=== PATIENT | male | born 1980 | race Caucasian/White ===

== ENCOUNTER 2019-12-23 04:40 | Inpatient (IN) | payer MEDICAID ==
[~2019-12-23] VITALS: Ht 167.6 cm; Wt 95.3 kg
[2019-12-23 04:48] VITALS: BP 108/74
[2019-12-23] MEDS ORDERED: NACL 0.9% 1,000 ML IV ONE (05:22)
[2019-12-23] MEDS ORDERED: LIDOCAINE/EPI 1% 1:100000 20 ML VIAL INJ ONE (05:25)
[2019-12-23] MEDS ORDERED: KETOROLAC 30 MG/ML VIAL IVP ONE (05:25)
--- NOTE | 2019-12-23 05:50 | NUR ---
39 YEAR OLD MALE COMPLAINS OF REDNESS, PAIN, AND SWELLING X 4 DAYS. PER PATIENT HE DENIES ANY TRAUMA. VISIBLE SWELLING, REDNESS AND SHARP PAIN AND HOT ON TOUCH TO RIGHT KNEE AREA. PATIENT AOX4, BREATHING EVEN AND UNLABORED, LUNGS CLEAR BL, SKIN WARM AND DRY. BED IN LOWEST POSITION, LOCKED, BED RAIL UPX1. PMH - DENIES ALLERGIES - NKA
--- NOTE | 2019-12-23 05:55 | NUR ---
DR BELTRAN AT BEDSIDE PERFORMING PROCEDURE
[2019-12-23 06:14] LABS: HEMATOCRIT 43.7 % (36-52); MEAN CORPUSCULAR HEMOGLOBIN 30 pg (27-31); MEAN CORPUSCULAR HGB CONC 34 g/dL (33-37); MEAN CORPUSCULAR VOLUME 87.7 fL (80-94); PLATELET COUNT (AUTO) 191 K/uL (140-450); RED BLOOD CELL COUNT(AUTO) 4.99 MIL/uL (4.20-6.10); RED CELL DISTRIBUTION WIDTH 13.1 % (11.6-13.7)
[2019-12-23] MEDS ORDERED: ONDANSETRON 4 MG/2 ML VIAL IVP ONE (06:20)
[2019-12-23] MEDS ORDERED: MORPHINE SULFATE 4 MG/ML SYR IVP ONE (06:20)
[2019-12-23] MEDS ORDERED: VANCOMYCIN 1,000 MG in DEXTROSE 5% 250 ML IV ONE (06:20)
[2019-12-23 06:23] LABS: WHITE BLOOD COUNT (AUTO) 36.3 K/uL (4.8-10.8)
[2019-12-23] MEDS ORDERED: NACL 0.9% 2,000 ML IV ONE (06:25)
--- NOTE | 2019-12-23 06:26 | NUR ---
RECIEVED A CRITICAL LAB VALUE FROM [facility] IN LAB FOR WBC COUNT OF 36.3. ALBERT MADE AWARE.
[2019-12-23] MEDS ORDERED: cefTRIAXone 1,000 MG VIAL ONE (06:28)
[2019-12-23 06:34] LABS: PROTHROMBIN TIME 12.8 secs (10.8-13.4)
[2019-12-23] MEDS ORDERED: DOCUSATE SODIUM 100 MG GELCAP PO PRN (06:35)
[2019-12-23] MEDS ORDERED: HYDROcodone/APAP 5/325 MG 1 TAB TAB PO PRN (06:35)
[2019-12-23] MEDS ORDERED: ONDANSETRON 4 MG/2 ML VIAL IM/IVP PRN (06:35)
[2019-12-23] MEDS ORDERED: MORPHINE SULFATE 2 MG/ML SYR IVP PRN (06:35)
[2019-12-23] MEDS ORDERED: LORazepam 2 MG/ML VIAL IM/IVP PRN (06:35)
[2019-12-23 06:49] LABS: ANION GAP 19.7 (8-16); CARBON DIOXIDE 19.5 mmol/L (21-32); CREATININE 2.2 mg/dL (0.6-1.3); POTASSIUM 3.2 mmol/L (3.5-5.1)
[2019-12-23 06:54] LABS: ALBUMIN 2.9 g/dL (3.4-5.0); TOTAL BILIRUBIN 0.8 mg/dL (0.0-1.0)
[2019-12-23 07:03] LABS: BASOPHILS % (MANUAL) 0 % (0-2); EOSINOPHILS % (MANUAL) 0 % (0-4); LYMPHOCYTES % (MANUAL) 6 % (20-46); MONOCYTES % (MANUAL) 7 % (5-12)
[2019-12-23 07:35] VITALS: BP 104/62
--- NOTE | 2019-12-23 07:35 | NUR ---
Patient will be admitted to care of DR Tay. Admited to [facility]. Will go to room 105A. Belongings list completed. Report to Cathryn AVILES.
--- NOTE | 2019-12-23 07:35 | NUR ---
PT ARRIVED UNIT VIA GURNEY ACCOMPANIED WITH ER NURSE BREEZY. PT IS AAOX4, SPEAKS IRISH, AND ABLE TO FOLLOW SIMPLE COMMAND AND UNDERSTAND MINIMAL MALAWIAN. RESPIRATION EVEN AND UNLABORED ON RA. DENIED PAIN, SOB AND DIZZINESS AT THIS TIME. NO SIGNS OF DISTRESS NOTED. IV ON LAC 20G, CLEAN AND INTACT, INFUSING BOLUS NS FROM ER. REDNESS ON R LEG NOTED, OTHERWISE SKIN CLEAN AND DRY. PT IS CONTINENT AND BEDREST AT THIS TIME DUE TO DISCOMFORT OF R LEG. ORIENTED PT TO THE ROOM, INSTRUCTED PT ON HOW TO USE THE CALL LIGHT, TV, BED REMOTE, LIGHTS, AND BATHROOM, PT SAID OK. UPDATED BOARD. MRSA NARES COLLECTED AND VITAL SIGNS TAKEN; TEMP 98.1 TEMPORAL, BP 104/62, PULSE 95, SPO2 97% ON RA, RR 19, DENIED PAIN AT THIS TIME. DISCUSSED PLAN OF CARE WITH PT AND PT WAS AWARE. SAFETY MEASURE IN PLACE. BED IN LOW POSITION AND CALL LIGHT WITHIN REACH. INSTRUCTED PT TO USE THE CALL LIGHT FOR ANY ASSISTANCE AND PT AWARE.
--- NOTE | 2019-12-23 08:02 | NUR ---
PROVIDED WARM BLANKET AND URANAL. PT IS TALKING ON HIS CELLPHONE. NO SIGNS OF DISTRESS NOTED. SAFETY MEASURES IN PLACE.
[2019-12-23] MEDS ORDERED: VANCOMYCIN PER PHARMACY MC PRN (08:35)
[2019-12-23 09:13] LABS: APPEARANCE,URINE CLEAR (CLEAR); BILIRUBIN,URINE NEGATIVE (NEGATIVE); BLOOD, URINE 3+ (NEGATIVE); COLOR,URINE AMBER (YELLOW); LEUKOCYTE ESTERASE ,URINE NEGATIVE (NEGATIVE); NITRITE, URINE NEGATIVE (NEGATIVE); PH,URINE 5.5 (5.0-9.0); UGLUCOSE NEGATIVE (NEGATIVE)
[2019-12-23] MEDS ORDERED: DEXTROSE 50% 50 ML SYR IVP PRN ×2 (09:20→09:25)
[2019-12-23 09:21] LABS: MAGNESIUM 1.8 mg/dL (1.8-2.4); PHOSPHORUS 3.2 mg/dL (2.5-4.9); THYROID STIMULATING HORMONE 2.56 uIU/mL (0.34-3.74)
[2019-12-23] MEDS ORDERED: INSULIN LISPRO SLIDING SCALE 100 UNITS/ML VIAL SUBQ PRN (09:25)
[2019-12-23] MEDS: LACTOBACILLUS RHAMNOSUS GG 1 EACH CAP PO SCH (09:32)
[2019-12-23] MEDS: KETOROLAC 30 MG/ML VIAL IM PRN ×2 (09:32→18:00)
[2019-12-23] MEDS: NACL 0.9% 1,000 ML IV SCH ×2 (09:34→23:14)
[2019-12-23] MEDS: VANCOMYCIN HCL 1.25 GM in DEXTROSE 5% 250 ML IV SCH (09:34)
--- NOTE | 2019-12-23 09:35 | NUR ---
PHARMACY CHANGED DOSAGE FOR VANCONMYCIN,0620 SCHEDULED DOSE NON-ADMINISTERED. ADMINISTERED SCHEDULED MEDS PER MD ORDER, MEDS EDUCATION PROVIDED AND PT SAID OK. PT TOLERATED PO MED WELL. PT COMPLAINED R LEG PAIN 6/10, ADMINISTERED PRN TORADOL VIA IVP, MED EDUCATION PROVIDED, AND PT SAID OK. PT IS AWAKE AND RESTING ON BED AT THIS TIME. NO ACUTE DISTRESS NOTED. SAFETY MEASURES IN PLACE.
[2019-12-23 09:40] LABS: RBC,URINE NONE SEEN /HPF (0-5)
[2019-12-23 09:41] LABS: WBC,URINE NONE SEEN /HPF (0-5)
--- NOTE | 2019-12-23 10:12 | NUR ---
Bullet Slugs Inspector Note: Basic Screen: Yes High Risk DC Screen [place]: CLARE IGLESIAS Home Relationship: Pre-Admission Living Arrangements: Lives with Other Prior ADL Independent Current Home Health Name/Tel: N/A Current DME/02 Name/Tel: [facility] Current Hospice Name/Tel: N/A Current Dialysis Name/Tel: N/A Healthcare Decision Maker: Patient Advance Directive No Physician Orders for Life Sustaining Treatment Form No Patient/Family Have Educational Needs No Discipline: Case Mgt/Social Svcs Tentative Discharge Plan/Destination: No Needs Identified Will require assistance post discharge: No Referred to Wharf Labourer: No Tentative Discharge Plan Summary: Patient is a 39-year-old male admitted for cellulitis right knee. Patient has no pertinent PMHX. Patient was admitted from home where he lives with his and children. SW contacted patient's Clare Iglesias who speaks South African but understands some German [phone]. Clare requested her son to translate what she did not understand. Per Clare, patient uses a cane for walking. Clare stated that patient is able to complete ADLs independently. Clare reported no history of mental health and substance abuse. Tentative discharge plan is for patient to return home. No further needs identified. Signature: [place] Date: Dec 23, 2019 Time: 10:11
[2019-12-23 10:46] LABS: BARBITURATE, URINE NEGATIVE ng/ml (NEG <=200); BENZODIAZEPINE, URINE NEGATIVE ng/mL (NEG <=200); CANNABINOID, URINE NEGATIVE ng/mL (NEG <=50); COCAINE, URINE NEGATIVE ng/mL (NEG <=300); PHENCYCLIDINE SCREEN,URINE NEGATIVE ng/mL (NEG <=25)
[2019-12-23 10:47] LABS: OPIATE, URINE NEGATIVE ng/mL (NEG <=2000)
[2019-12-23] MEDS ORDERED: BLOOD GLUCOSE MONITORING 1 DEV DEV FS SCH (11:30)
--- NOTE | 2019-12-23 11:35 | NUR ---
EXPLAINED TO PT THAT HE IS NOTHING BY MOUTH, PT WAS AWARE AND SIGN POSTED BY DOOR. PT IS RESTING ON BED AT THIS TIME, NO SIGNS OF DISTRESS NOTED. SAFETY MEASURES IN PLACE.
[2019-12-23] MEDS ORDERED: PIPERACILLIN/TAZOBACTAM 3.375 GM in DEXTROSE 5% 50 ML IV SCH (12:00)
--- NOTE | 2019-12-23 12:03 | NUR ---
DR MCKINNON IS TALKING TO PT AT BEDSIDE. NO SIGNS OF DISTRESS NOTED.
[2019-12-23] MEDS: BLOOD GLUCOSE MONITORING 1 DEV DEV FS SCH ×3 (12:21→21:01)
--- NOTE | 2019-12-23 12:21 | NUR ---
CHECKED BLOOD GLUCOSE AND RECEIVED 208, DUE TO NPO, NO COVERAGE GIVEN ADMINISTERED ANTIBIOTIC PER MD ORDER, MED EDUCATION PROVIDED, PT AWAKE AND WATCHING TV ON BED. NO SIGNS OF DISTRESS NOTED. SAFETY MEASURES IN PLACE.
[2019-12-23] MEDS ORDERED: POTASSIUM CHLORIDE 40 MEQ, LIDOCAINE MPF 1% 25 MG in NACL 0.9% 250 ML IV SCH (13:00)
--- NOTE | 2019-12-23 13:20 | NUR ---
PT IS AWAKE AND RESTING ON BED AT THIS TIME. NO SIGNS OF DISTRESS NOTED. SAFETY MEASURES IN PLACE.
--- NOTE | 2019-12-23 14:42 | NUR ---
ADMINISTERED POTASSIUM CHLORIDE FOR LOW POTASSIUM 3.2 FROM AM LAB, MED EDUCATION PROVIDED AND PT SAID OK. PT IS RESTING ON BED AT THIS TIME. NO SIGNS OF DISTRESS NOTED. SAFETY MEASURES IN PLACE.
--- NOTE | 2019-12-23 14:59 | NUR ---
DISCHARGE PLANNING: THIS IS A 39 Y/O MALE PATIENT FROM HOME, WHO CAME IN DUE TO RIGHT KNEE PAIN. DENIES PAST MEDICAL HISTORY. INITIAL DIAGNOSIS OF CELLULITIS RIGHT KNEE. CURRENT LABS INCLUDE WBC 36.3, H/H 15.0/43.7, NA/K 130/3.2, BUN/CREA 29/2.2 AND ALB 2.9. UDS NEGATIVE. SYNOVIAL FLUID CS NEGATIVE. BLOOD CS PENDING. ON ZOSYN, VANCOMYCIN. ORTHO CONSULT IN PLACE. DC PLAN BACK TO HOME ONCE STABLE. Addendum: 12/24/19 at 1347 by Archana Loja PT EVAL IN PLACE - WILL BENEFIT MORE REHAB SERVICES POST HOSPITALIZATION. KNEE XRAY SHOWED DIFFUSE SOFT TISSUE SWELLING. ON CLINDAMYCIN AND VANCOMYCIN. ORTHO CONSULT IN PLACE. SYNOVIAL JOINT RADHA STAIN AND CS PENDING. DC PLAN BACK TO HOME ONCE STABLE.
[2019-12-23 15:34] LABS: HEMATOCRIT 42.5 % (36-52); HEMOGLOBIN 14.3 g/dL (12.0-18.0); MEAN CORPUSCULAR HEMOGLOBIN 30 pg (27-31); MEAN CORPUSCULAR HGB CONC 34 g/dL (33-37); MEAN CORPUSCULAR VOLUME 88.5 fL (80-94); PLATELET COUNT (AUTO) 197 K/uL (140-450); RED CELL DISTRIBUTION WIDTH 13.1 % (11.6-13.7)
[2019-12-23 15:38] LABS: CARBON DIOXIDE 26.9 mmol/L (21-32); CREATININE 1.6 mg/dL (0.6-1.3); POTASSIUM 3.9 mmol/L (3.5-5.1)
--- NOTE | 2019-12-23 15:40 | NUR ---
PT IS WATCHING TV ON BED. REQUESTED FOR ICE CHIPS AND PROVIDED. DENIED PAIN, SOB AND DIZZINESS. NO SIGNS OF DISTRESS NOTED. SAFETY MEASURES IN PLACE. INSTRUCTED PT TO USE THE CALL LIGHT FOR ANY ASSISTANCE AND PT AWARE.
[2019-12-23 16:00] VITALS: BP 110/64
[2019-12-23 16:14] LABS: WHITE BLOOD COUNT (AUTO) 33.6 K/uL (4.8-10.8)
--- NOTE | 2019-12-23 16:19 | NUR ---
RECEIVED CRITICAL VALUE FOR WBC 33.[address] MCKINNON MADE AWARE. NO ORDER RECEIVED AT THIS TIME.
--- NOTE | 2019-12-23 16:37 | NUR ---
PATIENT HAS BEEN SCREENED AND CATEGORIZED HIGH NUTRITION RISK. PATIENT WILL BE SEEN WITHIN 1-2 DAYS OF ADMISSION. 12/23/19-12/24/[address]
[2019-12-23 16:44] LABS: LYMPHOCYTES % (MANUAL) 6 % (20-46); MONOCYTES % (MANUAL) 2 % (5-12)
--- NOTE | 2019-12-23 16:53 | NUR ---
CHECKED BLOOD GLUCOSE AND RECEIVED 125, NO COVERAGE NEEDED. PT AWAKE AND WATCHING TV ON BED. NO SIGNS OF DISTRESS NOTED. EXPLAINED TO PT THAT DR HAD CHANGED HIS DIET TO CCHO, AND PT AWARE. SAFETY MEASURES IN PLACE.
--- NOTE | 2019-12-23 17:25 | NUR ---
PT REQUESTED FOR ICE WATER, PROVIDED. PT AWAKE AND RESTING ON BED. NO SIGNS OF DISTRESS NOTED. SAFETY MEASURES IN PLACE.
--- NOTE | 2019-12-23 18:00 | NUR ---
ATTENDED TO CALL LIGHT, AND PT COMPLAINED 6/10 PAIN ON HIS LEG. MEDICATED WITH TORADOL, MED EDUCATION PROVIDED, AND PT SAID OK. PT IS SITTING UP ON BED. NO ACUTE DISTRESS NOTED. SAFETY MEASURES IN PLACE.
--- NOTE | 2019-12-23 19:14 | NUR ---
ENDORSED PT AT BEDSIDE TO AUTOMOTIVE PROJECT ENGINEER NURSE ELIZABETH FOR CONTINUITY OF CARE. PT AWAKE AND RESTING ON BED. NO ACUTE OF DISTRESS NOTED. PT IS IN STABLE CONDITION. SAFETY MEASURES IN PLACE.
--- NOTE | 2019-12-23 19:15 | NUR ---
RECD. RESTING IN BED, AWAKE, A/OX4. RESPIRATION EVEN AND UNLABORED. IV OF NS AT 60 ML/HR INFUSING LEFT AC, G20. RIGHT KNEE AND SURROUNDING AREA WITH REDNESS AND SWELLING. ABLE TO AMBULATE BUT PREFERS TO USE URINAL, STATED THERE IS A LOT OF PAIN WHEN MOVING RIGHT LEG. PAIN DECREASED, 2/10, WAS MEDICATED BY AM NURSE AT 1800. ON IV ANTIBIOTICS. PLAN OF CARE FOR THE SHIFT DISCUSSED. VERBALIZED UNDERSTANDING.
--- NOTE | 2019-12-23 19:30 | NUR ---
Patient's Plan of Care was discussed and reviewed with WATER COMMISSIONER: TYLOR
[2019-12-23 20:00] VITALS: BP 115/62
[2019-12-23] MEDS: CLINDAMYCIN 600 MG in DEXTROSE 5% 50 ML IV SCH (20:41)
--- NOTE | 2019-12-23 21:01 | NUR ---
DUE MEDICATIONS FOR THE NIGHT GIVEN, ATE 100% OF SNACK. DIABETIC TEACHINGS GIVEN ON THE IMPORTANCE OF DIET AND EXERCISE.
[2019-12-23] MEDS: INSULIN LISPRO SLIDING SCALE 100 UNITS/ML VIAL SUBQ PRN (21:02)
[2019-12-23] MEDS ORDERED: POLYETHYLENE GLYCOL 17 GM/PKT PO SCH (21:10)
--- NOTE | 2019-12-23 21:41 | NUR ---
DUE CLEOCIN 600 MG. IVPB INFUSED BY STEFAN TALAMANTES.
--- NOTE | 2019-12-23 22:15 | NUR ---
RESTING IN BED COMFORTABLY, NO NOTED ADVERSE REACTION TO CLEOCIN.
[2019-12-23] MEDS: DOCUSATE SODIUM 100 MG GELCAP PO SCH (22:46)
[2019-12-24] VITALS: BP 120/74
--- NOTE | 2019-12-24 | NUR ---
SLEEPING COMFORTABLY IN BED.
--- NOTE | 2019-12-24 02:00 | NUR ---
IN BED, SLEEPING SOUNDLY, SNORING.
[2019-12-24 04:00] VITALS: BP 110/72
--- NOTE | 2019-12-24 04:00 | NUR ---
COMFORTABLE IN BED, NO COMPLAINT OF PAIN, 0/10.
[2019-12-24] MEDS: CLINDAMYCIN 600 MG in DEXTROSE 5% 50 ML IV SCH ×3 (04:17→20:42)
[2019-12-24] MEDS: HYDROcodone/APAP 5/325 MG 1 TAB TAB PO PRN (05:26)
[2019-12-24] MEDS: BLOOD GLUCOSE MONITORING 1 DEV DEV FS SCH ×4 (05:27→20:31)
--- NOTE | 2019-12-24 05:27 | NUR ---
BS CHECKED - 154, MEDICATED WITH REGULAR INSULIN 2 UNITS SUB-Q PER SLIDING SCALE.
[2019-12-24] MEDS: INSULIN LISPRO SLIDING SCALE 100 UNITS/ML VIAL SUBQ PRN ×2 (05:29→20:44)
--- NOTE | 2019-12-24 07:15 | NUR ---
RECEIVED PT FROM BARTENDER HELPER NURSE NALINI. PT RESTING IN BED, AOX4, LITHUANIAN SPEAKING, ON ROOM AIR WITH IV SITE LEFT AC #20 RUNNING NS @60ML/HR. SKIN INTACT WITH RIGHT KNEE REDNESS AND SWELLING. NO S/S OF RESPIRATORY DISTRESS OR DISCOMFORT NOTED AT THIS TIME. WILL CONTINUE TO MONITOR.
--- NOTE | 2019-12-24 07:15 | NUR ---
CONDITION REMAIN STABLE. ENDORSED TO AM SHIFT NURSE FOR CONTINUITY OF CARE.
[2019-12-24 07:45] LABS: ANION GAP 13.4 (8-16); CARBON DIOXIDE 24.1 mmol/L (21-32); CREATININE 1.3 mg/dL (0.6-1.3); POTASSIUM 3.5 mmol/L (3.5-5.1)
[2019-12-24 08:00] VITALS: BP 120/76
[2019-12-24 08:16] LABS: CHOL/HDL RATIO 9.4 (1-4.5)
[2019-12-24] MEDS: VANCOMYCIN HCL 1.25 GM in DEXTROSE 5% 250 ML IV SCH (08:30)
[2019-12-24] MEDS: LACTOBACILLUS RHAMNOSUS GG 1 EACH CAP PO SCH (08:30)
[2019-12-24] MEDS: DOCUSATE SODIUM 100 MG GELCAP PO SCH (08:30)
--- NOTE | 2019-12-24 08:45 | NUR ---
SCHEDULED MEDICATION GIVEN AND TOLERATED WELL. NO S/S OF RESPIRATORY DISTRESS OR DISCOMFORT NOTED AT THIS TIME. WILL CONTINUE TO MONITOR.
--- NOTE | 2019-12-24 09:00 | NUR ---
PT REQUESTING CRUTCHES. SPOKE WITH DR. HARDWICK AND WILL PUT IN ORDERS FOR PT.
--- NOTE | 2019-12-24 10:30 | NUR ---
PT IN WITH PT.
[2019-12-24 11:09] LABS: BASOPHILS # (AUTO) 0.1 K/uL (0.00-0.22); BASOPHILS % (AUTO) 0.2 % (0.0-2.0); HEMATOCRIT 39.9 % (36-52); HEMOGLOBIN 13.5 g/dL (12.0-18.0); MEAN CORPUSCULAR HEMOGLOBIN 30 pg (27-31); MEAN CORPUSCULAR HGB CONC 34 g/dL (33-37); MEAN CORPUSCULAR VOLUME 89.3 fL (80-94); MONOCYTES # (AUTO) 0.9 K/uL (0.8-1.0); MONOCYTES % (AUTO) 3.1 % (1.7-9.3); NEUTROPHILS # (AUTO) 24.9 K/uL (1.8-7.7); NEUTROPHILS % (AUTO) 89.7 % (42.2-75.2); PLATELET COUNT (AUTO) 206 K/uL (140-450); RED BLOOD CELL COUNT(AUTO) 4.47 MIL/uL (4.20-6.10); RED CELL DISTRIBUTION WIDTH 13.2 % (11.6-13.7)
[2019-12-24 11:13] LABS: WHITE BLOOD COUNT (AUTO) 27.8 K/uL (4.8-10.8)
--- NOTE | 2019-12-24 11:30 | NUR ---
BLOOD GLUCOSE 149- NO INSULIN COVERAGE NEEDED. PT TOLERATED WELL. NO S/S OF RESPIRATORY DISTRESS OR DISCOMFORT NOTED AT THIS TIME. WILL CONTINUE TO MONITOR.
[2019-12-24] MEDS: NACL 0.9% 1,000 ML IV SCH (13:39)
--- NOTE | 2019-12-24 13:39 | NUR ---
SCHEDULED MEDICATION CLEOCIN GIVEN AND TOLERATED WELL. NO S/S OF RESPIRATORY DISTRESS OR DISCOMFORT NOTED AT THIS TIME. WILL CONTINUE TO MONITOR.
--- NOTE | 2019-12-24 14:50 | NUR ---
12/24/19 RD INITIAL ASSESSMENT COMPLETED PLEASE REFER TO NUTRITION ASSESSMENT UNDER CARE ACTIVITY FOR ESTIMATED NUTRITIONAL NEEDS. [facility]. [facility] 2. RD PROVIDE NUTRITION EDUCATION TO REDUCE REFINED CARBOHYDRATES 3. RD TO FOLLOW-UP 5-7 DAYS, LOW RISK ESTELA MARTINEZ, RD
[2019-12-24] MEDS: ACETAMINOPHEN 325 MG TAB PO PRN (16:02)
--- NOTE | 2019-12-24 16:02 | NUR ---
TEMPERATURE 100.3 F- TYLENOL GIVEN AND TOLERATED WELL. SHEETS REMOVED. ICE PACK GIVEN. NO S/S OF RESPIRATORY DISTRESS OR DISCOMFORT NOTED AT THIS TIME. WILL CONTINUE TO MONITOR.
--- NOTE | 2019-12-24 16:30 | NUR ---
BLOOD GLUCOSE 115- NO INSULIN COVERAGE GIVEN. NO S/S OF RESPIRATORY DISTRESS OR DISCOMFORT NOTED AT THIS TIME. WILL CONTINUE TO MONITOR.
--- NOTE | 2019-12-24 17:30 | NUR ---
PT CONTINUES WITH FEVER 100.1F, ICE PACK GIVEN AND TOLERATING WELL. NO S/S OF RESPIRATORY DISTRESS OR DISCOMFORT NOTED AT THIS TIME. WILL CONTINUE TO MONITOR.
[2019-12-24] MEDS ORDERED: CALCIUM CARBONATE 500 MG TAB.CHEW PO SCH (18:45)
--- NOTE | 2019-12-24 18:53 | NUR ---
PT C/O ACIDIC STOMACH. SPOKE WITH DR. MCKINNON AND PLACED AN ORDER FOR TUMS. MEDICATION GIVEN AND TOLERATED WELL. NO S/S OF RESPIRATORY DISTRESS OR DISCOMFORT NOTED AT THIS TIME. WILL CONTINUE TO MONITOR.
--- NOTE | 2019-12-24 19:25 | NUR ---
RECEIVED BEDSIDE REPORT FROM AM SHIFT RN FOR PT'S CONTINUITY OF CARE. PT IS AAOX4, PRIMARILY MALTESE SPEAKING, SPEAKS SOME GAMBIAN, AMBULATES TO BATHROOM WITH CANE, IS ON ROOM AIR, HAS LEFT AC20G WITH NS AT 60ML/HR, PT DENIES ANY PAIN AT THIS TIME. RIGHT KNEE CELLULITIS MARKED, RED IN APPEARANCE, KNEE IS ELEVATED. EXPLAINED TO PT THE ELECTROGALVANIZING MACHINE OPERATOR ROUTINE, PT VERBALIZED UNDERSTANDING. SAFETY MEASURES IN PLACE AND CALL LIGHT IS WITHIN REACH. WILL MONITOR PT THROUGHOUT SHIFT.
--- NOTE | 2019-12-24 20:42 | NUR ---
BLOOD GLUCOSE CHECKED AND CHARTED. ADMINISTERED SCHEDULED MEDICATIONS AND SUBQ INSULIN PER SLIDING SCALE PROTOCOL ORDERED. PT TOLERATED THEM WELL. PT TEACHING GIVEN REGARDING MEDICATIONS. PT VERBALIZED UNDERSTANDING. EXPLAINED TO PT RE: NEW IV INSERTION. PT MADE COMFORTABLE, RIGHT LEG ELEVATED, AND CALL LIGHT IS WITHIN REACH. WILL CONTINUE TO MONITOR PT.
[2019-12-24] MEDS ORDERED: PANTOPRAZOLE 40 MG TABEC PO SCH (21:00)
--- NOTE | 2019-12-24 21:50 | NUR ---
NEW IV LINE INSERTION, LEFT HAND 22G SALINE LOCK. PT TOLERATED IT WELL. NEW IV LINE FLUSHED, INTACT AND PATENT, ASYMPTOMATIC. RECONNECTED PT TO THE IVF. PT'S NEEDS MET. CALL LIGHT WITHIN REACH. WILL CONTINUE TO MONITOR PT.
[2019-12-25] VITALS: BP 132/80
--- NOTE | 2019-12-25 | NUR ---
PT AWAKE, VS CHECKED, PT DENIES ANY PAIN ONLY DISCOMFORT ON THE RIGHT KNEE. WILL CONTINUE TO MONITOR PT.
--- NOTE | 2019-12-25 02:00 | NUR ---
PT ASLEEP WITH NO SIGNS OF DISTRESS. PT'S RIGHT LEG IS ELEVATED. WILL CONTINUE TO MONITOR PT.
[2019-12-25] MEDS: CLINDAMYCIN 600 MG in DEXTROSE 5% 50 ML IV SCH (04:24)
--- NOTE | 2019-12-25 04:25 | NUR ---
ADMINISTERED SCHEDULED IV ABX ORDERED. PT ASLEEP WITH NO SIGNS OF DISTRESS. WILL CONTINUE TO MONITOR PT.
[2019-12-25] MEDS: ACETAMINOPHEN 325 MG TAB PO PRN (05:57)
[2019-12-25] MEDS: BLOOD GLUCOSE MONITORING 1 DEV DEV FS SCH (06:01)
[2019-12-25] MEDS: INSULIN LISPRO SLIDING SCALE 100 UNITS/ML VIAL SUBQ PRN (06:05)
[2019-12-25] MEDS: HYDROcodone/APAP 5/325 MG 1 TAB TAB PO PRN (06:10)
--- NOTE | 2019-12-25 06:10 | NUR ---
BLOOD GLUCOSE CHECKED AND CHARTED, BLOOD GLUCOSE 167. CHECKED PT'S TEMPORAL TEMPERATURE = 101.1. ADMINISTERED SUBQ INSULIN PER SLIDING SCALE PROTOCOL AND PO ACETAMINOPHEN 650MG FOR FEVER. COOLING MEASURES IN PLACE, PT C/O RIGHT LEG PAIN 5/10 UPON MOVEMENT, ADMINISTERED PRN PO PAIN MEDICATION ORDERED. PT TOLERATED THEM WELL. PT TEACHING GIVEN RE: COOLING MEASURES AND ELEVATING LEG. PT VERBALIZED UNDERSTANDING. PT STATES NO OTHER NEEDS AT THIS TIME. WILL RE-ASSESS PT IN AN HOUR FOR PAIN MEDICATION EFFECTIVENESS. WILL ENDORSE PT TO AM SHIFT RN FOR PT'S CONTINUITY OF CARE.
--- NOTE | 2019-12-25 07:05 | NUR ---
RECEIVED REPORT FROM NIGHT NURSE, PT IS AAOX4, ON ROOM AIR, REDNESS ON THE RIGHT LEG. SAFETY MEASURES IN PLACE CALL LIGHT WITHIN REACH. WILL CONTINUE TO MONITOR.
--- NOTE | 2019-12-25 08:30 | NUR ---
PT LEFT AMA AT THIS TIME. DR MCKINNON ESPLAINED TO THE PT THE RISK AND CONSEQUENCES INVOLVED IN LEAVING THE HOSPITAL AT THIS TIME, THE BENEFITS OF CONTINUED TREATMENT AND HOSPITALIZATION.
== END 2019-12-25 08:30 | disposition left against medical advice (07) | DRG 720 ==
LOC: MED 04:40 → MTU 06:46
PROVIDERS: ADMIT General Practice; ATTEND General Practice
PROC: 0S9C3ZZ Drainage of Right Knee Joint, Percutaneous Approach (ICD-10-PCS; principal; 2019-12-23)
DX: A41.9 Sepsis, unspecified organism (principal); N17.0 Acute kidney failure with tubular necrosis; E44.0 Moderate protein-calorie malnutrition; E87.1 Hypo-osmolality and hyponatremia; D68.9 Coagulation defect, unspecified; M00.9 Pyogenic arthritis, unspecified; E87.8 Other disorders of electrolyte and fluid balance, not elsewhere classified; L03.115 Cellulitis of right lower limb; Z53.29 Procedure and treatment not carried out because of patient's decision for other reasons; E87.6 Hypokalemia; R73.9 Hyperglycemia, unspecified; Z68.33 Body mass index [BMI] 33.0-33.9, adult; Z87.891 Personal history of nicotine dependence
CPT/HCPCS: 36415; 71045; 73562; 80048; 80053; 80305; 81001; 82948; 83036; 83605; 83690; 83735; 83880; 84100; 84443; 84550; 85025; 85610; 85651; 85730; 86140; 87040; 87070; 87075; 87081; 87205; 96361; 96365; 96375; 97116; 97161-GP; 99285; J0696; J1644; J1815; J1885; J2001; J2270; J2405; J2543; J3370; J3480; J3490; J7030; J7060; Q0092